=== PATIENT | male | born 1960 | race Caucasian/White ===

== ENCOUNTER 2017-04-26 08:52 | Day surgery (SDC) | payer MEDICARE, BC ==
[2017-04-26] MEDS ORDERED: LIDOCAINE 2% (SDV) 5 ML INJ (10:36)
[2017-04-26] MEDS ORDERED: PROPOFOL 60 ML (10:36)
== END 2017-04-26 12:34 | disposition home or self-care (01) ==
LOC: GIL 08:52
DX: R19.4 Change in bowel habit (principal); K29.70 Gastritis, unspecified, without bleeding; K21.9 Gastro-esophageal reflux disease without esophagitis; K64.8 Other hemorrhoids; I10 Essential (primary) hypertension; E11.9 Type 2 diabetes mellitus without complications
CPT/HCPCS: 43239; 87081

== ENCOUNTER 2018-08-27 17:37 | Inpatient (IN) | payer BC, MEDICARE ==
[~2018-08-27 17:37] MED LIST: VANCOMYCIN HCL 1.5 GM in SOD CHLORIDE 0.9% 250 ML IVPB
[2018-08-27 19:35] LABS: ADD MAN DIFF? NO
[2018-08-27 19:38] LABS: WHITE BLOOD COUNT 11.6 10^3/ul (4.8-10.8)
[2018-08-27 19:38] LABS: BASOPHIL # 0.1 10^3/ul (0.0-0.1); BASOPHILS % 0.5 % (0.0-2.0); EOSINOPHILS # 0.2 10^3/ul (0.0-0.5); EOSINOPHILS % 1.6 % (0.0-7.0); HEMATOCRIT 42.5 % (42.0-52.0); LYMPHOCYTES # 1.7 10^3/ul (0.8-2.9); LYMPHOCYTES % 14.5 % (15.0-51.0); MEAN CORPUSCULAR HEMOGLOBIN 27.9 pg (29.0-33.0); MEAN CORPUSCULAR HGB CONC 32.9 g/dl (32.0-37.0); MEAN CORPUSCULAR VOLUME 84.7 fl (82.0-101.0); MEAN PLATELET VOLUME 9.1 fl (7.4-10.4); MONOCYTE # 1.3 10^3/ul (0.3-0.9); MONOCYTES % 10.8 % (0.0-11.0); NEUTROPHIL # 8.4 10^3/ul (1.6-7.5); NEUTROPHILS % 72.3 % (39.0-77.0); PLATELET COUNT 307 10^3/UL (140-415); RED BLOOD COUNT 5.02 10^6/ul (4.70-6.10); RED CELL DISTRIBUTION WIDTH 12.5 % (11.5-14.5)
[2018-08-27] MEDS: ONDANSETRON 4 MG INJ IV (19:39)
[2018-08-27] MEDS: ENALAPRILAT 1.25 MG INJ IV (19:39)
[2018-08-27] MEDS: IBUPROFEN 600 MG TAB PO (19:39)
[2018-08-27] MEDS: HYDROmorphONE 1 MG/ML SYG IV (19:40)
[2018-08-27] MEDS: CEFEPIME 1GM/50 ML (PMX) 50 ML IVPB (19:40)
[2018-08-27 19:46] LABS: ANION GAP 14 (5-13); BLOOD UREA NITROGEN 25 mg/dl (7-20); CALCIUM 10.6 mg/dl (8.4-10.2); CARBON DIOXIDE 21 mmol/L (21-31); CHLORIDE 106 mmol/L (97-110); CREATININE 2.36 mg/dl (0.61-1.24); Estimated GFR 29 mL/min (>60); GLUCOSE 143 mg/dl (70-220); POTASSIUM 3.9 mmol/L (3.5-5.1); SODIUM 141 mmol/L (135-144)
[2018-08-27] MEDS: OXYCODONE/ACETAMINOPHEN (5/325) TAB PO (20:41)
[2018-08-27] MEDS: hydrALAzine 20 MG INJ IV (21:17)
[2018-08-27] MEDS ORDERED: hydrALAzine 20 MG INJ IV (21:30)
[2018-08-27] MEDS ORDERED: VANCOMYCIN IV PER PHARMACY XX (22:00)
[2018-08-27] MEDS: SOD CHLORIDE 0.9% 1,000 ML IV (23:07)
[2018-08-27] MEDS: CEFTRIAXONE 2 GM/50 ML (PMX) 50 ML IVPB (23:07)
[2018-08-27] MEDS: HYDROCODONE/APAP (10/325) TAB PO (23:27)
[2018-08-27] MEDS: NIFEdipine (XL) 30 MG TAB PO (23:28)
[2018-08-28] MEDS: VANCOMYCIN HCL 1.5 GM in SOD CHLORIDE 0.9% 250 ML IVPB (00:25)
[2018-08-28] MEDS: HYDROCODONE/APAP (10/325) TAB PO (04:28)
[2018-08-28 06:20] LABS: ADD MAN DIFF? NO
[2018-08-28 06:27] LABS: BASOPHIL # 0.1 10^3/ul (0.0-0.1); BASOPHILS % 0.5 % (0.0-2.0); EOSINOPHILS # 0.2 10^3/ul (0.0-0.5); EOSINOPHILS % 1.5 % (0.0-7.0); HEMATOCRIT 35.2 % (42.0-52.0); HEMOGLOBIN 11.6 g/dl (14.0-18.0); LYMPHOCYTES # 1.2 10^3/ul (0.8-2.9); LYMPHOCYTES % 10.7 % (15.0-51.0); MEAN CORPUSCULAR HEMOGLOBIN 28.2 pg (29.0-33.0); MEAN CORPUSCULAR VOLUME 85.4 fl (82.0-101.0); MEAN PLATELET VOLUME 9.2 fl (7.4-10.4); MONOCYTE # 1.5 10^3/ul (0.3-0.9); NEUTROPHIL # 8.3 10^3/ul (1.6-7.5); NEUTROPHILS % 73.9 % (39.0-77.0); PLATELET COUNT 240 10^3/UL (140-415); RED BLOOD COUNT 4.12 10^6/ul (4.70-6.10); RED CELL DISTRIBUTION WIDTH 12.8 % (11.5-14.5)
[2018-08-28 06:27] LABS: WHITE BLOOD COUNT 11.3 10^3/ul (4.8-10.8)
[2018-08-28 06:47] LABS: ALANINE AMINOTRANSFERASE 45 IU/L (13-69); ALBUMIN 3.5 g/dl (3.3-4.9); ALBUMIN/GLOBULIN RATIO 1.12; ALKALINE PHOSPHATASE 101 IU/L (42-121); ANION GAP 7 (5-13); ASPARTATE AMINO TRANSFERASE 29 IU/L (15-46); BILIRUBIN,INDIRECT 0.5 mg/dl (0-1.1); BILIRUBIN,TOTAL 0.5 mg/dl (0.2-1.3); BLOOD UREA NITROGEN 27 mg/dl (7-20); CALCIUM 9.5 mg/dl (8.4-10.2); CARBON DIOXIDE 22 mmol/L (21-31); CHLORIDE 109 mmol/L (97-110); CHOL/HDL RATIO 3.7 RATIO; CHOLESTEROL 141 mg/dl (100-200); CREATININE 2.03 mg/dl (0.61-1.24); Estimated GFR 34 mL/min (>60); GLUCOSE 113 mg/dl (70-220); HDL CHOLESTEROL 38 mg/dl (28-71); LDL CHOLESTEROL,CALCULATED 81 mg/dl; POTASSIUM 4.3 mmol/L (3.5-5.1); SODIUM 138 mmol/L (135-144); TOTAL PROTEIN 6.6 g/dl (6.1-8.1); TRIGLYCERIDES 110 mg/dl (0-149)
[2018-08-28 07:05] LABS: MAGNESIUM 1.9 mg/dl (1.7-2.5)
[2018-08-28 07:08] LABS: HEMOGLOBIN A1C 5.3 % (0-5.9)
[2018-08-28 07:55] LABS: ERYTHROCYTE SEDIMENTATION RATE 75 mm/Hr (0-20)
[2018-08-28] MEDS ORDERED: PANTOPRAZOLE (EC) 40 MG TAB PO (09:00)
[2018-08-28] MEDS ORDERED: hydrALAzine 20 MG INJ IV (09:30)
[2018-08-28] MEDS: predniSONE 5 MG TAB PO (09:38)
[2018-08-28] MEDS: PAROXETINE 10 MG TAB PO (09:38)
[2018-08-28] MEDS: PANTOPRAZOLE (EC) 40 MG TAB PO (09:38)
[2018-08-28] MEDS: TACROLIMUS 1 MG CAP PO ×2 (09:38→21:08)
[2018-08-28] MEDS: MYCOPHENOLATE 250 MG CAP PO ×4 (09:38→21:08)
[2018-08-28] MEDS: MINOXIDIL 2.5 MG TAB PO ×2 (09:39→21:08)
[2018-08-28] MEDS: NIFEdipine (XL) 30 MG TAB PO (09:39)
[2018-08-28] MEDS ORDERED: ONDANSETRON 4 MG INJ IV (12:30)
[2018-08-28] MEDS ORDERED: HYDROCODONE/APAP (10/325) TAB PO (16:30)
[2018-08-28] MEDS: SOD CHLORIDE 0.9% 1,000 ML IV (19:00)
[2018-08-28] MEDS ORDERED: CLONIDINE HCL 0.2 MG PO (21:00)
[2018-08-28] MEDS: CEFTRIAXONE 2 GM/50 ML (PMX) 50 ML IVPB (21:07)
[2018-08-28] MEDS: ATORVASTATIN 10 MG TAB PO (21:08)
[2018-08-28] MEDS: traZODone 50 MG TAB PO (21:09)
[2018-08-28] MEDS: HYDROmorphONE 1 MG/ML SYG IV (22:14)
[2018-08-28 22:53] LABS: ADD UMIC YES; UR ASCORBIC ACID NEGATIVE (NEGATIVE); UR BILIRUBIN (Dip) NEGATIVE (NEGATIVE); UR BLOOD (Dip) 1+ mg/dL (NEGATIVE); UR CLARITY CLEAR (CLEAR); UR COLOR YELLOW (YELLOW); UR GLUCOSE (Dip) NEGATIVE (NEGATIVE); UR KETONES (Dip) NEGATIVE (NEGATIVE); UR LEUKOCYTE ESTERASE (Dip) NEGATIVE Leu/ul (NEGATIVE); UR NITRITE (Dip) NEGATIVE (NEGATIVE); UR RBC 1 /HPF (0-5); UR SPECIFIC GRAVITY (Dip) 1.017 (1.003-1.030); UR TOTAL PROTEIN (Dip) 2+ mg/dl (NEGATIVE); UR UROBILINOGEN (Dip) NEGATIVE (NEGATIVE); UR WBC 0 /HPF (0-5)
[2018-08-28 22:58] LABS: CREATININE,URINE RANDOM 101.88 mg/dl (20-370)
[2018-08-28 22:58] LABS: SODIUM,URINE RANDOM 108 mmol/L (30-90)
[2018-08-28 23:12] LABS: CREATININE,URINE RANDOM 100.32 mg/dl (20-370); PROTEIN/CREAT RATIO 1.11 RATIO
[2018-08-29] MEDS: SOD CHLORIDE 0.9% 1,000 ML IV (05:03)
[2018-08-29 06:11] LABS: ADD MAN DIFF? NO
[2018-08-29 06:25] LABS: BASOPHILS % 0.4 % (0.0-2.0); EOSINOPHILS # 0.1 10^3/ul (0.0-0.5); HEMATOCRIT 35.7 % (42.0-52.0); HEMOGLOBIN 11.8 g/dl (14.0-18.0); LYMPHOCYTES # 0.8 10^3/ul (0.8-2.9); LYMPHOCYTES % 7.6 % (15.0-51.0); MEAN CORPUSCULAR HEMOGLOBIN 28.2 pg (29.0-33.0); MEAN CORPUSCULAR HGB CONC 33.1 g/dl (32.0-37.0); MEAN CORPUSCULAR VOLUME 85.4 fl (82.0-101.0); MEAN PLATELET VOLUME 9.5 fl (7.4-10.4); MONOCYTE # 0.9 10^3/ul (0.3-0.9); MONOCYTES % 8.6 % (0.0-11.0); NEUTROPHIL # 8.9 10^3/ul (1.6-7.5); PLATELET COUNT 268 10^3/UL (140-415); RED BLOOD COUNT 4.18 10^6/ul (4.70-6.10); RED CELL DISTRIBUTION WIDTH 12.3 % (11.5-14.5)
[2018-08-29 06:25] LABS: WHITE BLOOD COUNT 10.8 10^3/ul (4.8-10.8)
[2018-08-29 06:52] LABS: ALANINE AMINOTRANSFERASE 40 IU/L (13-69); ALBUMIN 3.5 g/dl (3.3-4.9); ALBUMIN/GLOBULIN RATIO 0.97; ALKALINE PHOSPHATASE 101 IU/L (42-121); ANION GAP 11 (5-13); ASPARTATE AMINO TRANSFERASE 21 IU/L (15-46); BILIRUBIN,INDIRECT 0.3 mg/dl (0-1.1); BILIRUBIN,TOTAL 0.3 mg/dl (0.2-1.3); BLOOD UREA NITROGEN 24 mg/dl (7-20); CALCIUM 9.7 mg/dl (8.4-10.2); CARBON DIOXIDE 21 mmol/L (21-31); CHLORIDE 106 mmol/L (97-110); CREATININE 1.61 mg/dl (0.61-1.24); Estimated GFR 45 mL/min (>60); GLUCOSE 107 mg/dl (70-220); POTASSIUM 4.2 mmol/L (3.5-5.1); SODIUM 138 mmol/L (135-144); TOTAL PROTEIN 7.1 g/dl (6.1-8.1)
[2018-08-29 07:44] LABS: C-REACTIVE PROTEIN 15.2 mg/dl (0.0-0.9)
[2018-08-29] MEDS: PAROXETINE 10 MG TAB PO (08:16)
[2018-08-29] MEDS: predniSONE 5 MG TAB PO (08:16)
[2018-08-29] MEDS: MINOXIDIL 2.5 MG TAB PO (08:16)
[2018-08-29] MEDS: PANTOPRAZOLE (EC) 40 MG TAB PO (08:16)
[2018-08-29] MEDS: NIFEdipine (XL) 30 MG TAB PO (08:16)
[2018-08-29] MEDS: MYCOPHENOLATE 250 MG CAP PO ×3 (08:16→16:44)
[2018-08-29] MEDS: TACROLIMUS 1 MG CAP PO (08:16)
[2018-08-29] MEDS: VANCOMYCIN HCL 1.25 GM in SOD CHLORIDE 0.9% 250 ML IVPB (12:42)
[2018-08-29 18:06] LABS: TACROLIMUS 1.9 mcg/L
[2018-08-30] MEDS ORDERED: VANCOMYCIN 1 GM 250 ML IVPB (12:00)
[2018-08-30 16:42] LABS: CREATININE, RANDOM URINE 108 mg/dL (20-320); MICROALBUMIN 43.6 mg/dL; MICROALBUMIN/CREATININE RATIO 404 (<30)
== END 2018-08-29 17:40 | disposition home or self-care (01) | DRG 558 ==
LOC: E/R 17:37 → MS1 20:20
DX: M65.842 Other synovitis and tenosynovitis, left hand (principal); Z94.0 Kidney transplant status; N17.9 Acute kidney failure, unspecified; N18.3 Chronic kidney disease, stage 3 (moderate); I16.0 Hypertensive urgency; I12.9 Hypertensive chronic kidney disease with stage 1 through stage 4 chronic kidney disease, or unspecified chronic kidney disease; E78.5 Hyperlipidemia, unspecified; D64.9 Anemia, unspecified; K29.50 Unspecified chronic gastritis without bleeding
CPT/HCPCS: 36415; 73130-LT; 73200; 73218; 76775; 80048; 80053; 80061; 80197; 81001; 81003; 82043; 82570; 83036; 83735; 84155; 84300; 84443; 85025; 85651; 86140; 87040-91; 96374; 96375; 99285-25